=== PATIENT | female | born 1975 | race Two or more races ===

== ENCOUNTER 2017-03-10 19:42 | Emergency (ER) | payer OTHER ==
[~2017-03-10] VITALS: Ht 167.6 cm; Wt 113.4 kg
--- NOTE | 2017-03-10 19:51 | Emergency Room Report ---
History of Present Illness General Chief Complaint: To Be Triaged Source: Patient Present Illness HPI Patient fell onto her right arm yesterday. She complains of pain in her right wrist and right elbow. She's got some swelling there. She took some Advil yesterday. She can't make a fist because of the pain. No fevers, rashes. No LOC. No other pain in her body. No cough, cp, dysuria, NVD. The patient is right-handed and is a mother taking care of the kids. 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 Reviewed Nursing Documentation: PMH: Agreed, PSxH: Agreed Nursing Documentation-PMH Hx Hypertension: No - pre-eclampsia Hx Diabetes: No - Gestational diabetes Review of Systems All Other Systems: negative except mentioned in HPI Physical Exam Vital Signs Date Time Temp Pulse Resp B/P (MAP) Pulse Ox O2 Delivery O2 Flow Rate FiO2 03/10/17 20:01 98.2 76 16 115/83 96 Room Air Sp02 EP Interpretation: reviewed, normal General Appearance: well appearing, no apparent distress, GCS 15 Head: normocephalic, atraumatic Eyes: bilateral eye normal inspection, bilateral eye PERRL ENT: hearing grossly normal, normal voice, moist mucus membranes Neck: full range of motion, supple Respiratory: chest non-tender, lungs clear, no respiratory distress, speaking full sentences Cardiovascular #1: regular rate, rhythm Cardiovascular #2: 2+ radial (R) Gastrointestinal: normal inspection Musculoskeletal: digits/nails normal, gait/station normal, swelling - R wrist, other - tenderness R wrist, no snuff box, also in elbow, radial head not tender , decreased ROM both wrist and elbow. Shoulder and fingers not tender Neurologic: alert, motor strength/tone normal - except for hand, sensory intact , normal gait, speech normal Psychiatric: mood/affect normal Skin: no rash Medical Decision Making Diagnostic Impression: Primary Impression: Fall Qualified Codes: W19.XXXA - Unspecified fall, initial encounter Additional Impressions: Contusion, wrist Qualified Codes: S60.211A - Contusion of right wrist, initial encounter Contusion, elbow Qualified Codes: S50.01XA - Contusion of right elbow, initial encounter ER Course Patient presents with right wrist and elbow pain post fall. The fact that she still has swelling and pain suggests the possibility that there could be a fracture versus contusion. X-rays are indicated as well as pain medication. Xrays without fxs. Splint and annika applied by tech. Position excellent. Improved pain. Neurovasc checked by me and normal. Patient stable for outpatient observation and treatment. Other X-Ray Diagnostic Results Other X-Ray Diagnostic Results #1: X-Ray ordered: wrist # of Views/Limited Vs Complete: 3 View Indication: Pain EP Interpretation: Yes Interpretation: no dislocation, no soft tissue swelling, no fractures Impression: No acute disease Interpreting ER Provider: Electronically signed by Fito Wade MD Other X-Ray Diagnostic Results #2: X-Ray ordered: Elbow # of Views/Limited Vs Complete: 2 View Indication: Pain EP Interpretation: Yes Interpretation: no dislocation, no soft tissue swelling, no fractures Impression: No acute disease Interpreting ER Provider: Electronically signed by Fito Wade MD Last Vital Signs Date Time Temp Pulse Resp B/P (MAP) Pulse Ox O2 Delivery O2 Flow Rate FiO2 03/10/17 20:31 76 16 115/83 96 Room Air 03/10/17 20:08 98.2 Status: improved Disposition: HOME, SELF-CARE Condition: Improved Scripts Tramadol Hcl* (ULTRAM*) 50 Mg Tablet 50 MG ORAL Q6H Y for For Pain, #10 TAB 0 Refills Prov: Fito Wade M.D. 03/10/17 Ibuprofen* (MOTRIN*) 600 Mg Tablet 600 MG ORAL Q6H Y for For Pain, #16 TAB Prov: Fito Wade M.D. 03/10/17 Fito Wade M.D. Mar 10, 2017 19:51
[2017-03-10] MEDS ORDERED: NKM (20:04)
[2017-03-10 20:08] VITALS: BP 115/83
[2017-03-10] MEDS ORDERED: TRAMADOL HCL50 MG ORAL (20:19)
[2017-03-10] MEDS ORDERED: IBUPROFEN600 MG ORAL (20:19)
[2017-03-10 20:31] VITALS: BP 115/83
--- NOTE | 2017-03-11 10:45 | Diagnostic Imaging Report ---
Indication: Pain Findings: 3 views of the right elbow were obtained. No acute fractures, malalignment, erosions or periostitis are identified. Bone mineralization is within normal limits. Soft tissues are unremarkable. Impression: Negative examination of the elbow.
--- NOTE | 2017-03-11 10:46 | Diagnostic Imaging Report ---
Indication: Pain Findings: 3 views of the right wrist were obtained. No acute fractures, malalignment, erosions or periostitis are identified. Bone mineralization is within normal limits. Soft tissues are unremarkable. Impression: Negative examination of the right wrist.
== END 2017-03-10 20:31 | disposition home or self-care (01) ==
LOC: EMR 20:20
DX: S60.211A Contusion of right wrist, initial encounter (principal); S50.01XA Contusion of right elbow, initial encounter; W19.XXXA Unspecified fall, initial encounter; Y92.9 Unspecified place or not applicable
CPT/HCPCS: 99284

== ENCOUNTER 2017-05-03 18:29 | Emergency (ER) | payer OTHER ==
[~2017-05-03] VITALS: Ht 167.6 cm; Wt 113.4 kg
[~2017-05-03 18:29] MED LIST: IBUPROFEN600 MG ORAL; NKM; TRAMADOL HCL50 MG ORAL
[2017-05-03 18:32] VITALS: BP 143/76
[2017-05-03] MEDS ORDERED: LIDOCAINE VISC100 ML ORAL (19:10)
[2017-05-03 19:25] VITALS: BP 143/76
--- NOTE | 2017-05-03 21:13 | Emergency Room Report ---
History of Present Illness General Chief Complaint: Pain Source: Patient, Medical Record Present Illness HPI The patient is a 41-year-old female presenting for feeling of burning in the mouth and on the tongue as well as white patches in the mouth. She states that this began approximately one week prior. Described as 6/10 burning sensation. No known provoking relieving factors. She states that she went to see the dentist today who said he is unable to help her and told her to seek care elsewhere. She admits to history of smoking but denies diagnosis of diabetes or state of immunocompromisation. She denies other symptoms including nausea, vomiting, fever, chills, sore throat , cough Allergies: Coded Allergies: NO KNOWN ALLERGIES (Unverified Allergy, Unknown, 07/17/15) Patient History Past Medical History: see triage record Pertinent Family History: none Social History: Reports: smoking Last Menstrual Period: 04/28/17 Reviewed Nursing Documentation: PMH: Agreed, PSxH: Agreed Nursing Documentation-PMH Hx Hypertension: No - pre-eclampsia Hx Diabetes: No - Gestational diabetes Review of Systems All Other Systems: negative except mentioned in HPI Physical Exam Vital Signs Date Time Temp Pulse Resp B/P (MAP) Pulse Ox O2 Delivery O2 Flow Rate FiO2 05/03/17 18:32 98.1 78 16 143/76 97 Room Air Sp02 EP Interpretation: reviewed, normal General Appearance: no apparent distress, alert, GCS 15, non-toxic Head: normocephalic, atraumatic Eyes: bilateral eye normal inspection, bilateral eye PERRL ENT: hearing grossly normal, no angioedema, normal voice, uvula midline, other - thin white plaques with irregular borders on tongue and buccal mucosa. Cannot scrape off Neck: full range of motion, supple/symm/no masses Respiratory: chest non-tender, lungs clear, normal breath sounds, speaking full sentences Cardiovascular #1: regular rate, rhythm, no edema Musculoskeletal: back normal, gait/station normal, normal range of motion, non- tender Neurologic: alert, oriented x3, responsive, motor strength/tone normal, sensory intact, speech normal Psychiatric: judgement/insight normal, memory normal, mood/affect normal, no suicidal/homicidal ideation Skin: normal color, no rash, warm/dry, well hydrated Medical Decision Making PA Attestation Dr. Westbrook is my supervising physician. Patient management was discussed with my supervising physician Diagnostic Impression: Primary Impression: Leukoplakia of oral mucosa/tongue ER Course The patient is a 41-year-old female presenting for feeling of burning in the mouth and on the tongue as well as white patches DDx considered but not limited to: candidiasis, leukoplakia, malignancy, pharyngitis, among others PE: NAD thin white plaques with irregular borders on tongue and buccal mucosa. Cannot scrape off. No tonsillar edema or exudate. No lymphad The patient is to followup with her primary doctor and obtain referral for further evaluation as soon as possible. ER precautions given Last Vital Signs Date Time Temp Pulse Resp B/P (MAP) Pulse Ox O2 Delivery O2 Flow Rate FiO2 05/03/17 19:25 98.1 78 16 143/76 97 Room Air Status: improved Disposition: HOME, SELF-CARE Condition: Improved Scripts Lidocaine HCl 2% Viscous (Lidocaine HCl 2% Viscous) 100 Ml Solution 15 ML ORAL QID, #200 ML Prov: WM MONTESINOS 05/03/17 Patient Instructions: Leukoplakia Additional Instructions: I discussed my findings with the patient. All questions and concerns have been answered. Treatment and medication compliance have been addressed. Return to ED if symptoms worsen, new symptoms arise, or if needed for any reason. Patient verbalized understanding of discharge instructions. Please follow up with her primary doctor soon as possible for further evaluation and treatment WM MONTESINOS May 03, 2017 21:13
== END 2017-05-03 19:25 | disposition home or self-care (01) ==
LOC: EMR 19:00
DX: K13.21 Leukoplakia of oral mucosa, including tongue (principal)
CPT/HCPCS: 99283

== ENCOUNTER 2017-06-09 17:15 | Emergency (ER) | payer OTHER ==
[~2017-06-09] VITALS: Ht 167.6 cm; Wt 113.4 kg
[~2017-06-09 17:15] MED LIST changes: +LIDOCAINE VISC100 ML ORAL
[2017-06-09] MEDS ORDERED: SIMVASTATIN5 MG ORAL (17:36)
--- NOTE | 2017-06-09 17:41 | Emergency Room Report ---
History of Present Illness General Chief Complaint: Upper Respiratory Illness Source: Patient Present Illness HPI 41-year-old female presents to the emergency department complaining of cough, rhinorrhea, nasal congestion, increased mucus x2 weeks. Patient denies fevers or chills, neck pain or stiffness, recent travel or ill contacts. Patient states that she does not take relief with vaccinations. She reports multiple history of sinusitis as a child patient states that her primary symptom is coughing and feeling mucus in the throat with difficulty clearing. Patient denies sore throat. Denies CP, Palpitations, LOC, AMS, dizziness, Changes in Vision, Sensation, paresthesias, or a sudden severe headache. Allergies: Coded Allergies: NO KNOWN ALLERGIES (Unverified Allergy, Unknown, 07/17/15) Patient History Past Medical History: see triage record Past Surgical History: none Pertinent Family History: none Last Menstrual Period: 05/29/17 Now: No Immunizations: UTD Reviewed Nursing Documentation: PMH: Agreed, PSxH: Agreed Nursing Documentation-PMH Hx Hypertension: No - pre-eclampsia Hx Diabetes: No - Gestational diabetes Review of Systems All Other Systems: negative except mentioned in HPI Physical Exam Vital Signs Date Time Temp Pulse Resp B/P (MAP) Pulse Ox O2 Delivery O2 Flow Rate FiO2 06/09/17 17:32 98.1 75 19 139/77 98 Room Air Sp02 EP Interpretation: reviewed, normal General Appearance: no apparent distress, alert, GCS 15, non-toxic Head: normocephalic, atraumatic Eyes: bilateral eye normal inspection, bilateral eye PERRL ENT: hearing grossly normal, normal pharynx, no angioedema, normal voice Neck: full range of motion, supple/symm/no masses Respiratory: lungs clear, normal breath sounds, no wheezing, speaking full sentences Cardiovascular #1: regular rate, rhythm Gastrointestinal: non tender, soft, no guarding, no rebound Rectal: deferred Musculoskeletal: back normal, gait/station normal, normal range of motion, non- tender Neurologic: alert, oriented x3, responsive, motor strength/tone normal, sensory intact, speech normal Psychiatric: judgement/insight normal, memory normal, mood/affect normal Skin: normal color, no rash, warm/dry, well hydrated Medical Decision Making PA Attestation Dr. montenegro is my supervising Physician whom patient management has been discussed with. Diagnostic Impression: Primary Impression: Bronchitis ER Course 41-year-old female presents to the emergency department complaining of cough, rhinorrhea, nasal congestion, increased mucus x2 weeks. Patient denies fevers or chills, neck pain or stiffness, recent travel or ill contacts. Patient states that she does not take relief with vaccinations. She reports multiple history of sinusitis as a child patient states that her primary symptom is coughing and feeling mucus in the throat with difficulty clearing. Patient denies sore throat. Denies CP, Palpitations, LOC, AMS, dizziness, Changes in Vision, Sensation, paresthesias, or a sudden severe headache. Ddx considered but are not limited to URI, pneumonia, PE, strep pharyngitis, meningitis. Vital signs: Pt.is afebrile VS are WNL H&PE are most consistent with bronchitis ORDERS: none required at this time, the diagnosis is clinical ED INTERVENTIONS: None required at this time. DISCHARGE: At this time pt. is stable for d/c to home. Will provide printed patient care instructions, and any necessary prescriptions. Care plan and follow up instructions have been discussed with the patient prior to discharge. Last Vital Signs Date Time Temp Pulse Resp B/P (MAP) Pulse Ox O2 Delivery O2 Flow Rate FiO2 06/09/17 17:32 98.1 75 19 139/77 98 Room Air Disposition: HOME, SELF-CARE Condition: Stable Scripts Guaifenesin (Guaifenesin) 1,200 Mg Tab.er.12h 1200 MG PO Q12HR, #20 TAB Prov: Tari Willard P.A. 06/09/17 Cetirizine Hcl/Pseudoephedrine (ZYRTEC-D TABLET) 1 Each Tab.er.12h 1 EACH ORAL Q12HR, #20 TAB Prov: Tari Willard P.A. 06/09/17 Codeine/Promethazine Hcl* (PROMETHAZINE-CODEINE SYRUP*) 118 Ml Syrup 5 ML ORAL Q6H Y for For Cough, #120 ML 0 Refills Prov: Tari Willard P.A. 06/09/17 Benzonatate* (TESSALON PERLE*) 100 Mg Capsule 100 MG ORAL THREE TIMES A DAY, #28 PERLE Prov: Tari Willard P.A. 06/09/17 Patient Instructions: Acute Bronchitis, [id number], Upper Respiratory Infection, Adult Additional Instructions: Take medications as directed. Follow up with a Primary Care Provider in 3-5 days, even if your symptoms have resolved. --Please review list of primary care clinics, if you do not already have a primary care provider Return sooner to ED if new symptoms occur, or current symptoms become worse. Do not drink alcohol, drive, or operate heavy machinery while taking Cough Syrup as this may cause drowsiness. - Please note that this Emergency Department Report was dictated using [employer] prevention analyst technology software, occasionally this can lead to erroneous entry secondary to interpretation by the dictation equipment. Tari Willard Jun 09, 2017 17:41
[2017-06-09 17:45] VITALS: BP 139/77
[2017-06-09] MEDS ORDERED: GUAIFENESIN1200 MG PO (17:59)
[2017-06-09] MEDS ORDERED: ZYRTEC-D TABLE1 EACH ORAL (17:59)
[2017-06-09] MEDS ORDERED: PROMETHAZINE-C118 M1 ORAL (17:59)
[2017-06-09] MEDS ORDERED: TESSALON PERLE100 MG ORAL (17:59)
[2017-06-09 18:45] VITALS: BP 128/74
== END 2017-06-09 18:45 | disposition home or self-care (01) ==
LOC: EMR 17:45
DX: J40 Bronchitis, not specified as acute or chronic (principal)
CPT/HCPCS: 99284

== ENCOUNTER 2017-08-05 15:51 | Emergency (ER) | payer OTHER ==
[~2017-08-05] VITALS: Ht 167.6 cm; Wt 81.6 kg
[~2017-08-05 15:51] MED LIST changes: +GUAIFENESIN1200 MG PO; +PROMETHAZINE-C118 M1 ORAL; +SIMVASTATIN5 MG ORAL; +TESSALON PERLE100 MG ORAL; +ZYRTEC-D TABLE1 EACH ORAL
[2017-08-05 16:08] VITALS: BP 135/80
--- NOTE | 2017-08-05 16:46 | Emergency Room Report ---
History of Present Illness General Chief Complaint: Sore Throat Source: Patient Present Illness HPI Patient presents with sores in mouth. Denies fevers. Son also sick. No NVD. No dysuria. No pharyngeal pain, cough, chest pain. No other rashes. No medicine taken. Pain reported 7/10, in mouth, not radiate. No nodes. No joint pain or muscle aches. Seen for possible leukoplakia in April last year. Denies medical problems (DM, HTN). Had both during (pre-eclampsia and gestational DM). Not . LNMP 07/17/17. Allergies: Coded Allergies: NO KNOWN ALLERGIES (Unverified Allergy, Unknown, 07/17/15) Patient History Past Medical History: see triage record Social History: Reports: smoking Social History Narrative staying with sister Last Menstrual Period: 07/17/17 Reviewed Nursing Documentation: PMH: Agreed, PSxH: Agreed Nursing Documentation-PMH Past Medical History: No History, Except For Hx Hypertension: No - pre-eclampsia Hx Diabetes: No - Gestational diabetes Review of Systems All Other Systems: negative except mentioned in HPI Physical Exam Vital Signs Date Time Temp Pulse Resp B/P (MAP) Pulse Ox O2 Delivery O2 Flow Rate FiO2 08/05/17 15:58 98.1 80 18 129/81 97 Room Air Sp02 EP Interpretation: reviewed, normal General Appearance: well appearing, no apparent distress, non-toxic Head: normocephalic, atraumatic Eyes: bilateral eye normal inspection, bilateral eye PERRL ENT: hearing grossly normal, normal voice, TMs + canals normal, other - aphthous ulcers Neck: full range of motion, supple Respiratory: lungs clear, no respiratory distress, speaking full sentences Cardiovascular #1: regular rate, rhythm Gastrointestinal: normal inspection, overweight Musculoskeletal: digits/nails normal, gait/station normal, normal range of motion Neurologic: alert, oriented x3, normal gait, grossly normal Psychiatric: mood/affect normal Skin: no rash Medical Decision Making Diagnostic Impression: Primary Impression: Aphthous stomatitis ER Course Patient presents with mouth ulcers. Ddx: aphthous stomatitis, pharyngitis, allergic reaction amongst others. Son also ill. Exam c/w aphthous stomatitis. Not toxic and tolerating PO well. Query the fact she had oral lesions in April. Patient stable for outpatient observation and treatment. Last Vital Signs Date Time Temp Pulse Resp B/P (MAP) Pulse Ox O2 Delivery O2 Flow Rate FiO2 08/05/17 16:59 98.1 78 16 135/80 98 Room Air Status: improved Disposition: HOME, SELF-CARE Condition: Improved Scripts Tramadol Hcl* (ULTRAM*) 50 Mg Tablet 50 MG ORAL Q6H Y for For Pain, #8 TAB 0 Refills Prov: Fito Wade M.D. 08/05/17 Acetaminophen (Tylenol) 325 Mg Tablet 650 MG ORAL Q6H Y for Prn Pain/Headache/Temp > 101, #20 TAB 0 Refills Prov: Fito Wade M.D. 08/05/17 Fito Wade M.D. Aug 05, 2017 16:46
[2017-08-05] MEDS ORDERED: TRAMADOL HCL50 MG ORAL (16:49)
[2017-08-05] MEDS ORDERED: TYLENOL325 MG ORAL (16:49)
[2017-08-05 16:59] VITALS: BP 135/80
== END 2017-08-05 16:59 | disposition home or self-care (01) ==
LOC: EMR 16:35
DX: K12.0 Recurrent oral aphthae (principal)
CPT/HCPCS: 99283